=== PATIENT | male | born 1970 ===

== ENCOUNTER 2017-09-01 17:49 | Emergency (ER) | payer BC ==
[2017-09-01] MEDS ORDERED: Tetan/Diph/Pertus SYR(Tdap)* 0.5 ML SYR(BOOSTRIX) use SYR IM ONE (19:44)
[2017-09-01] MEDS ORDERED: Rabies Vaccine (RabAvert)* 2.5 UNITS VIAL IM ONE (19:46)
[2017-09-01] MEDS ORDERED: Rabies Immune Globulin 10 ML* 150 UNIT/ML VIAL IM ONE (19:49)
--- NOTE | 2017-09-01 21:04 | ED ---
Bite Injury/Animal - HPI Summary HPI Summary: 47-year-old male presents with a helton bite to the left big toe. He states his walking and a helton ran up to him and bite him. He believes his last tetanus was 13 years ago. He did not clean area. There is no active bleeding. Has a small abrasion on nailbed of the left big toe. He is able to ambulate. He has minimal pain. Contacted the health Department who told to come here as he needs rabies vaccine. - History of Current Complaint Chief Complaint: EDAnimalBite Stated Complaint: HELTON BITE Time Seen by Provider: 09/01/17 19:35 Pain Intensity: 1 - Allergies/Home Medications Allergies/Adverse Reactions: Allergies Allergy/AdvReac Type Severity Reaction Status Date / Time yellow fever vaccine live Allergy Hives/Diff. Verified 09/01/17 17:57 Breathing/I tching Home Medications: Home Medications Escitalopram (NF) [Lexapro 10 mg (NF)] 10 mg PO DAILY 09/01/17 [History Confirmed 09/01/17] Escitalopram (NF) [Lexapro 5 mg (NF)] 5 mg PO DAILY 09/01/17 [History Confirmed 09/01/17] PMH/Surg Hx/FS Hx/Imm Hx Endocrine/Hematology History: Denies: Hx Anticoagulant Therapy Respiratory History: Denies: Hx Asthma Infectious Disease History: No Infectious Disease History: Denies: History Other Infectious Disease, Traveled Outside the [place] in Last 30 Days - Family History Known Family History: Positive: None - Social History Alcohol Use: Rare Substance Use Type: Reports: None Smoking Status (MU): Former Smoker Review of Systems Negative: Fever Negative: Chest Pain Negative: Shortness Of Breath Positive: Other - bite left great toe All Other Systems Reviewed And Are Negative: Yes Physical Exam Triage Information Reviewed: Yes Vital Signs On Initial Exam: Initial Vitals Temp Pulse Resp BP Pulse Ox 98.3 F 89 16 130/91 96 09/01/17 17:53 09/01/17 17:53 09/01/17 17:53 09/01/17 17:53 09/01/17 17:53 Vital Signs Reviewed: Yes Appearance: Positive: Well-Appearing Skin: Positive: Warm, Dry, Other - small abrasion to left great toe near nailbed Head/Face: Positive: Normal Head/Face Inspection Eyes: Positive: Normal, Conjunctiva Clear Respiratory/Lung Sounds: Positive: Clear to Auscultation, Breath Sounds Present Cardiovascular: Positive: Normal, RRR Musculoskeletal: Positive: Strength/ROM Intact - left toe, Other - good pulses, capillary refill<2 secs, Neurological: Positive: Normal Psychiatric: Positive: Normal Diagnostics - Vital Signs Vital Signs Temp Pulse Resp BP Pulse Ox 09/01/17 17:53 98.3 F 89 16 130/91 96 - Laboratory Lab Statement: Any lab studies that have been ordered have been reviewed, and results considered in the medical decision making process. Bite Injury Course/Dx - Course Course Of Treatment: 47-year-old male presents with a helton bite to the left big toe. He states his walking and a helton ran up to him and bite him. He believes his last tetanus was 13 years ago. He did not clean area. There is no active bleeding. Has a small abrasion on nailbed of the left big toe. He is able to ambulate. He has minimal pain. Contacted the health Department who told to come here as he needs rabies vaccine. On exam has small abrasion to the left big toe. Neurovascular intact. Cleaned area. Placed 2 ml immunoglobulin in the area. Gave vaccine and the rest of immunoglobulin. Gave tetanus. Will have follow-up with health department. We'll place on Augmentin. Patient understands agrees plan. - Diagnoses Differential Diagnosis/HQI/PQRI: Positive: Puncture, Rabies Exposure, Other - abrasion Provider Diagnosis: Animal bite, Rabies exposure Discharge - Sign-Out/Discharge Documenting (check all that apply): Discharge/Admit/Transfer - Discharge Plan Condition: Good Disposition: HOME Prescriptions: Amoxicillin/Clavulanate TAB* [Augmentin TAB 250*] 750 mg PO BID #27 tab Patient Education Materials: Animal Bite (ED), Rabies Vaccine (ED) Referrals: Jorje Dunn MD [Primary Care Provider] - Additional Instructions: Follow up with health department Wash wound once a day take three tablets twice a day for 5 days Return to ED if develop any signs of infection or any new or worsening symptoms - Billing Disposition and Condition Condition: GOOD Disposition: HOME
[2017-09-01] MEDS ORDERED: Amoxicillin/Clavulanate TAB* 500 MG PO ONE (21:09)
[2017-09-01] MEDS ORDERED: Amoxicillin/Clavulanate TAB* 250 MG PO ONE (21:09)
[2017-09-01 21:34] VITALS: BP 121/88
== END 2017-09-01 21:33 | disposition home or self-care (01) ==
LOC: ED 17:49
DX: S91.152A Open bite of left great toe without damage to nail, initial encounter (principal); W64.XXXA Exposure to other animate mechanical forces, initial encounter; Y92.9 Unspecified place or not applicable; Z87.891 Personal history of nicotine dependence; Z20.3 Contact with and (suspected) exposure to rabies
CPT/HCPCS: 90375; 90471; 90675; 90715; 99283; A9270-GY

== ENCOUNTER 2017-11-21 20:15 | Emergency (ER) | payer BC ==
--- OUTSIDE RECORDS SUMMARY | 2017-11-21 20:21 | XMS REPORT ---
:1970 External Reference #:[id number] Author Organization [employer] Address [address] [place] [address] Phone [phone] Care Team Providers Name Role Phone Jorje Dunn MD Care Team Information Scientific Associate Unavailable Jorje Dunn MD Primary Care Physician Unavailable Payers Type Date Identification Numbers Payment Provider Subscriber Commercial Policy Number: [id number] RUTH Erum Casey PayID: [id number] [place] [address] Problems Description No Information Family History Date Family Member(s) Problem(s) Comments Father 74 Father Diabetes Mother 70 Mother No Current Problems Social History Type Date Description Comments Cigarette Use Occasionally Smokes Cigarettes ETOH Use Rare Use Of Alcohol Recreational Drug Use Has Used In Past Allergies, Adverse Reactions, Alerts Date Description Reaction Status Severity Comments 11/10/2017 Yellow Fever Vaccine Anaphylaxis, Urticaria active Moderate Medications Medication Date Status Form Strength Qnty SIG Indications Ordering Provider Escitalopram Active Tablets 10mg 1 a day Unknown Oxalate 00 Vital Signs Date Vital Result Comment 11/10/2017 Weight 153.00 lb Height 69 inches 5'9" BMI (Body Mass Index) 22.6 kg/m2 BP Systolic 126 mmHg BP Diastolic 87 mmHg Heart Rate 72 /min O2 % BldC Oximetry 98 % Body Temperature 98.6 F [place] Score 9 Neck Circumference in inches 14.5 Pain Level 0 Results Description No Information Procedures Description No Information Plan of Care No Information Available
--- NOTE | 2017-11-21 21:27 | UC ---
Cardiac HPI - HPI Summary HPI Summary: 47 yo male presents here for evaluation of chest pain for one week he has had episodic episodes of left side CP sharp and stabbing last 1-2 second 1-5 x/day no f/c no SOB rare nonproductive cough today while walking he had a 2-3 minute episode of mild left sided chest pressure. no SOB, no diaphoresis,no n/v he continue to walk and pressure when away later while playing piano he had a similar episode currently symptomatic - History of Current Complaint Chief Complaint: UCChestPain Stated Complaint: CHEST PAIN Time Seen by Provider: 11/21/17 20:27 Hx Obtained From: Patient Onset/Duration: Sudden Onset, Lasting Minutes Timing: Constant Initial Severity: Mild Current Severity: None Pain Intensity: 0 Chest Pain Location: Diffuse, Left Anterior Character: Pressure/Squeezing Aggravating Factor(s): Nothing Alleviating Factor(s): Spontaneous Resolution Associated Signs & Symptoms: Positive: Chest Pain - Allergy/Home Medications Allergies/Adverse Reactions: Allergies Allergy/AdvReac Type Severity Reaction Status Date / Time yellow fever vaccine live Allergy Hives/Diff. Verified 11/21/17 20:36 Breathing/I tching PMH/Surg Hx/FS Hx/Imm Hx Previously Healthy: Yes Respiratory History: Asthma - EIA Psychological History: Anxiety Other History Of: Negative For: Anticoagulant Therapy - Surgical History Surgical History: None Surgery Procedure, Year, and Place: denies - Family History Known Family History: Positive: None Negative: Cardiac Disease, Hypertension, Diabetes - Social History Alcohol Use: Rare Substance Use Type: None Smoking Status (MU): Former Smoker Length of Time of Smoking/Using Tobacco: 15 When Did the Patient Quit Smoking/Using Tobacco: 15 years - Immunization History Most Recent Influenza Vaccination: 2014 Most Recent Tetanus Shot: UTD Review of Systems Constitutional: Negative Skin: Negative Eyes: Negative ENT: Negative Respiratory: Negative Cardiovascular: Chest Pain Gastrointestinal: Negative Genitourinary: Negative Motor: Negative Neurovascular: Negative Musculoskeletal: Negative Neurological: Negative Psychological: Negative Is Patient Immunocompromised?: No All Other Systems Reviewed And Are Negative: Yes Physical Exam Triage Information Reviewed: Yes Appearance: Well-Appearing, No Pain Distress, Well-Nourished Vital Signs: Initial Vital Signs Temp 98.4 F 11/21/17 20:30 Pulse 85 11/21/17 20:30 Resp 22 11/21/17 20:30 BP 156/90 11/21/17 20:30 Pulse Ox 98 11/21/17 20:30 Vital Signs Reviewed: Yes Eyes: Positive: Conjunctiva Clear ENT: Positive: Hearing grossly normal, Uvula midline. Negative: Nasal congestion, Nasal drainage, Tonsillar swelling, Tonsillar exudate, Trismus, Muffled voice, Hoarse voice Neck: Positive: Supple, Nontender, No Lymphadenopathy Respiratory: Positive: Chest non-tender, Lungs clear, Normal breath sounds, No respiratory distress, No accessory muscle use Cardiovascular: Positive: RRR, No Murmur Abdomen Description: Positive: Nontender, No Organomegaly, Soft Bowel Sounds: Positive: Present Musculoskeletal: Positive: ROM Intact, No Edema Neurological: Positive: Alert Psychological Exam: Normal Skin Exam: Normal Diagnostics - Radiology No standard instances Xray Interpretation: No Acute Changes - stigmata of COPD - EKG Cardiac Rate: NL Cardiac Rhythm: Sinus: Normal Ectopy: None ST Segment: Normal - Clinical Impression Provider Diagnoses: chest pain of uncertain cause Discharge - Sign-Out/Discharge Documenting (check all that apply): Patient Departure - Discharge Plan Condition: Stable Disposition: HOME Patient Education Materials: Chest Pain (ED) Referrals: Jorje Dunn MD [Primary Care Provider] - 1 Day (recheck in 1-2 days) Additional Instructions: I saw nothing on your EKG to indicate a heart attack I saw no pneumonia (your official XR reading is pending) I am unsure how to explain you symptoms should your symptoms worsen in any way (new symptoms/longer duration of pressure /increased pressure) I suggest you go to the ER please call your MD in AM to make arrangement for follow up - Billing Disposition and Condition Condition: STABLE
[2017-11-21 21:45] VITALS: BP 129/68
--- NOTE | 2017-11-22 07:41 | RAD ---
INDICATION: Left-sided chest pain. COMPARISON: There are no prior studies available for comparison. TECHNIQUE: Dual-energy PA and lateral views of the chest were obtained. FINDINGS: The heart is within normal limits in size. Mediastinal and hilar contours appear within normal limits. The lungs are hyperinflated and clear. No pleural effusion is seen. There is no evidence for pneumothorax. IMPRESSION: FINDINGS CONSISTENT WITH COPD, NO EVIDENCE FOR ACUTE FINDING. R0
== END 2017-11-21 21:46 | disposition home or self-care (01) ==
LOC: UCEAST 20:15
DX: R07.9 Chest pain, unspecified (principal); Z88.7 Allergy status to serum and vaccine; Z87.891 Personal history of nicotine dependence
CPT/HCPCS: 71046; 93005; 99211; G0463